=== PATIENT | male | born 1965 | race African-American/Black ===

== ENCOUNTER 2017-05-29 10:41 | Emergency (ER) | payer OTHER | END 2017-05-29 13:03 | disposition home or self-care (01) | LOC: D.ER 10:41 | DX: S66.922A Laceration of unspecified muscle, fascia and tendon at wrist and hand level, left hand, initial encounter (principal); W45.8XXA Other foreign body or object entering through skin, initial encounter; Y93.89 Activity, other specified; Y92.89 Other specified places as the place of occurrence of the external cause; F17.200 Nicotine dependence, unspecified, uncomplicated ==

== ENCOUNTER 2018-07-03 17:12 | Inpatient (IN) | payer MEDICAID ==
[~2018-07-03] VITALS: Ht 175.3 cm; Wt 74.9 kg
[2018-07-03 18:04] LABS: APPEARANCE CLEAR (CLEAR); BILIRUBIN NEGATIVE (NEGATIVE); COLOR YELLOW (YELLOW); GLUCOSE NEGATIVE (NEGATIVE); KETONE NEGATIVE (NEGATIVE); NITRITE NEGATIVE (NEGATIVE); PROTEIN NEGATIVE (NEGATIVE); SPECIFIC GRAVITY 1.005 (1.005-1.020)
[2018-07-03 18:05] LABS: BASOPHILS 0.2 % (0-2); EOSINOPHILS 0 % (0-7); HEMATOCRIT 42.5 % (42.0-54.0); HEMOGLOBIN 14.8 g/dL (13.5-17.5); LYMPHOCYTES 12.1 % (15-50); MCH 29.2 pg (26.0-34.0); MCHC 34.8 g/dL (31.0-37.0); MCV 83.8 fL (80.0-100.0); MEAN PLATELET VOLUME 10.2 fL (7.4-10.4); MONOCYTES 17.4 % (2-11); NEUTROPHILS 69.3 % (40-80); PLATELET COUNT 189 10x3/uL (130-400); RBC 5.07 10x6/uL (4.20-6.10); RDW 13.2 % (11.5-14.5); WBC 11.6 10x3/uL (4.8-10.8)
[2018-07-03 18:08] LABS: EPITHELIAL CELLS 0-5 /hpf (0-5); RED CELLS - URINE 0-5 /hpf (0-5)
[2018-07-03 18:09] LABS: BACTERIA FEW /hpf (NONE SEEN)
[2018-07-03 18:37] LABS: ALKALINE PHOSPHATASE 59 U/L (46-116); ALT (SGPT) 40 U/L (10-68); CALC OSMOLALITY 270 mosm/kg (275-300); CALCIUM 8.4 mg/dL (8.5-10.1); CARBON DIOXIDE 25.8 mmol/L (21.0-32.0); CHLORIDE - SERUM 100 mmol/L (98-107); CREATININE - SERUM 1.1 mg/dL (0.6-1.3); GLUCOSE 130 mg/dL (74-106); POTASSIUM - SERUM 3.2 mmol/L (3.5-5.1); PROTEIN - SERUM 7.4 g/dL (6.4-8.2); SODIUM 134 mmol/L (136-145); UREA NITROGEN 14 mg/dL (7-18); eGFR NON AFRICAN AMERICAN 75 mL/min (90-120)
[2018-07-03 18:43] LABS: AMYLASE - SERUM 113 U/L (25-115); C-REACTIVE PROTEIN 12.5 mg/dL (0.0-0.9); CKMB 2.3 U/L (0.0-3.6); CREATINE KINASE 688 UL (21-232); LIPASE 222 U/L (73-393); PRO BNP 378 pg/mL (0-125)
[2018-07-03 18:44] LABS: TROPONIN-I < 0.017 ng/mL (0.000-0.060)
[2018-07-03 18:56] LABS: INR 1.07 (0.85-1.17); PROTIME 13.5 SECONDS (11.6-15.0)
[2018-07-03 18:58] LABS: D-DIMER-QUANTITATIVE 0.86 ug/mLFEU (0.20-0.54)
[2018-07-03 19:41] VITALS: BP 177/102
[2018-07-03 20:32] VITALS: BP 154/94
[2018-07-04 00:49] VITALS: BP 141/99
[2018-07-04 00:58] VITALS: BP 141/99
[2018-07-04 06:51] VITALS: BP 143/99
[2018-07-04 09:20] VITALS: BP 130/79
[2018-07-04 11:19] LABS: BASOPHILS 0.2 % (0-2); EOSINOPHILS 0 % (0-7); HEMATOCRIT 39.2 % (42.0-54.0); HEMOGLOBIN 13.3 g/dL (13.5-17.5); IMMATURE GRANULOCYTES 0.5 % (0-5); LYMPHOCYTES 16.2 % (15-50); MCH 28.5 pg (26.0-34.0); MCHC 33.9 g/dL (31.0-37.0); MCV 84.1 fL (80.0-100.0); MONOCYTES 16.7 % (2-11); NEUTROPHILS 66.4 % (40-80); PLATELET COUNT 211 10x3/uL (130-400); RBC 4.66 10x6/uL (4.20-6.10); RDW 13.3 % (11.5-14.5); WBC 10.4 10x3/uL (4.8-10.8)
[2018-07-04 11:30] LABS: ALBUMIN 2.5 g/dL (3.4-5.0); ALKALINE PHOSPHATASE 50 U/L (46-116); ALT (SGPT) 31 U/L (10-68); CALC OSMOLALITY 267 mosm/kg (275-300); CALCIUM 7.5 mg/dL (8.5-10.1); CARBON DIOXIDE 24.1 mmol/L (21.0-32.0); CHLORIDE - SERUM 103 mmol/L (98-107); CREATININE - SERUM 0.9 mg/dL (0.6-1.3); GLUCOSE 133 mg/dL (74-106); POTASSIUM - SERUM 3.5 mmol/L (3.5-5.1); PROTEIN - SERUM 6.3 g/dL (6.4-8.2); SODIUM 134 mmol/L (136-145); UREA NITROGEN 7 mg/dL (7-18); eGFR NON AFRICAN AMERICAN > 90 mL/min (90-120)
[2018-07-04 12:33] VITALS: BP 148/91
[2018-07-04 21:59] VITALS: BP 137/79
[2018-07-05 05:51] LABS: BASOPHILS 0.2 % (0-2); EOSINOPHILS 0.3 % (0-7); HEMATOCRIT 38.4 % (42.0-54.0); HEMOGLOBIN 12.9 g/dL (13.5-17.5); IMMATURE GRANULOCYTES 0.9 % (0-5); LYMPHOCYTES 17.7 % (15-50); MCH 28.4 pg (26.0-34.0); MCHC 33.6 g/dL (31.0-37.0); MCV 84.4 fL (80.0-100.0); MEAN PLATELET VOLUME 11.4 fL (7.4-10.4); MONOCYTES 18.2 % (2-11); NEUTROPHILS 62.7 % (40-80); PLATELET COUNT 216 10x3/uL (130-400); RBC 4.55 10x6/uL (4.20-6.10); RDW 13.5 % (11.5-14.5)
[2018-07-05 05:56] LABS: WBC 14.3 10x3/uL (4.8-10.8)
[2018-07-05 06:38] LABS: ALBUMIN 2.3 g/dL (3.4-5.0); ALKALINE PHOSPHATASE 49 U/L (46-116); ALT (SGPT) 32 U/L (10-68); BILIRUBIN - TOTAL 1.03 mg/dL (0.2-1.3); CALCIUM 7.6 mg/dL (8.5-10.1); CARBON DIOXIDE 24.1 mmol/L (21.0-32.0); CHLORIDE - SERUM 105 mmol/L (98-107); GLUCOSE 138 mg/dL (74-106); PROTEIN - SERUM 6.2 g/dL (6.4-8.2); SODIUM 140 mmol/L (136-145); eGFR NON AFRICAN AMERICAN 83 mL/min (90-120)
[2018-07-05 06:50] LABS: CALC OSMOLALITY 277 mosm/kg (275-300); UREA NITROGEN 5 mg/dL (7-18)
[2018-07-05 06:52] LABS: POTASSIUM - SERUM 2.9 mmol/L (3.5-5.1)
[2018-07-05 07:16] VITALS: BP 164/100
[2018-07-05 08:31] VITALS: BP 136/80
[2018-07-05 11:13] VITALS: BP 166/111
[2018-07-05 13:52] VITALS: Ht 175.3 cm; Wt 74.9 kg
[2018-07-05 14:53] VITALS: BP 154/90
[2018-07-05 22:07] VITALS: BP 173/106
[2018-07-06] VITALS (7 sets, daily range): BP systolic 157–181; BP diastolic 63–120
[2018-07-06 06:21] LABS: BASOPHILS 0.3 % (0-2); EOSINOPHILS 0.7 % (0-7); HEMATOCRIT 37.2 % (42.0-54.0); HEMOGLOBIN 12.4 g/dL (13.5-17.5); IMMATURE GRANULOCYTES 2.3 % (0-5); LYMPHOCYTES 13.4 % (15-50); MCH 27.9 pg (26.0-34.0); MCHC 33.3 g/dL (31.0-37.0); MCV 83.8 fL (80.0-100.0); MEAN PLATELET VOLUME 11.4 fL (7.4-10.4); MONOCYTES 15.1 % (2-11); NEUTROPHILS 68.2 % (40-80); PLATELET COUNT 236 10x3/uL (130-400); RBC 4.44 10x6/uL (4.20-6.10); RDW 13.5 % (11.5-14.5); WBC 16.9 10x3/uL (4.8-10.8)
[2018-07-06 07:30] LABS: ALBUMIN 2.2 g/dL (3.4-5.0); ALKALINE PHOSPHATASE 61 U/L (46-116); ALT (SGPT) 48 U/L (10-68); BILIRUBIN - TOTAL 1.24 mg/dL (0.2-1.3); CALC OSMOLALITY 273 mosm/kg (275-300); CALCIUM 8.1 mg/dL (8.5-10.1); CARBON DIOXIDE 22.8 mmol/L (21.0-32.0); CHLORIDE - SERUM 105 mmol/L (98-107); CREATININE - SERUM 0.9 mg/dL (0.6-1.3); GLUCOSE 115 mg/dL (74-106); POTASSIUM - SERUM 3.4 mmol/L (3.5-5.1); PROTEIN - SERUM 6.4 g/dL (6.4-8.2); SODIUM 138 mmol/L (136-145); UREA NITROGEN 3 mg/dL (7-18); eGFR NON AFRICAN AMERICAN > 90 mL/min (90-120)
[2018-07-07 00:56] VITALS: BP 159/103
[2018-07-07 05:53] VITALS: BP 165/107
[2018-07-07 06:47] LABS: HEMATOCRIT 36.4 % (42.0-54.0); HEMOGLOBIN 12.3 g/dL (13.5-17.5); MCH 28.3 pg (26.0-34.0); MCHC 33.8 g/dL (31.0-37.0); MCV 83.9 fL (80.0-100.0); MEAN PLATELET VOLUME 11.4 fL (7.4-10.4); PLATELET COUNT 294 10x3/uL (130-400); RBC 4.34 10x6/uL (4.20-6.10); RDW 13.6 % (11.5-14.5); WBC 20.5 10x3/uL (4.8-10.8)
[2018-07-07 06:49] LABS: ALBUMIN 2.2 g/dL (3.4-5.0); ALKALINE PHOSPHATASE 60 U/L (46-116); ALT (SGPT) 45 U/L (10-68); CALC OSMOLALITY 274 mosm/kg (275-300); CALCIUM 7.9 mg/dL (8.5-10.1); CHLORIDE - SERUM 106 mmol/L (98-107); GLUCOSE 107 mg/dL (74-106); POTASSIUM - SERUM 3.2 mmol/L (3.5-5.1); PROTEIN - SERUM 6.4 g/dL (6.4-8.2); SODIUM 139 mmol/L (136-145); eGFR NON AFRICAN AMERICAN 83 mL/min (90-120)
[2018-07-07 07:01] LABS: UREA NITROGEN 5 mg/dL (7-18)
[2018-07-07 08:01] LABS: ANISOCYTOSIS OCC; EOSINOPHILS 2 % (0-7); LYMPHOCYTES 11 % (15-50); MONOCYTES 19 % (2-11); NEUTROPHILS 52 % (40-80); PLATELET ESTIMATE NORMAL
[2018-07-07 12:27] VITALS: BP 184/116
[2018-07-07 16:09] VITALS: BP 180/118
[2018-07-07 21:11] VITALS: BP 187/118
[2018-07-08] VITALS: BP 189/115
[2018-07-08 04:00] VITALS: BP 201/115
[2018-07-08 05:09] LABS: HEMATOCRIT 35.1 % (42.0-54.0); HEMOGLOBIN 11.9 g/dL (13.5-17.5); IMMATURE GRANULOCYTES 10.1 % (0-5); LYMPHOCYTES 14.6 % (15-50); MCH 28.2 pg (26.0-34.0); MCHC 33.9 g/dL (31.0-37.0); MCV 83.2 fL (80.0-100.0); MEAN PLATELET VOLUME 10.9 fL (7.4-10.4); MONOCYTES 15.9 % (2-11); NEUTROPHILS 57.4 % (40-80); RBC 4.22 10x6/uL (4.20-6.10); RDW 13.8 % (11.5-14.5); WBC 18.9 10x3/uL (4.8-10.8)
[2018-07-08 05:22] LABS: PLATELET COUNT 367 10x3/uL (130-400)
[2018-07-08 05:37] LABS: % SATURATION 17 % (15-55); IRON 24 ug/dl (35-150); TOTAL IRON BIND CAPACITY 140 ug/dl (260-445); UNSAT IRON BIND CAPACITY 116 ug/dl (150-375)
[2018-07-08 06:08] LABS: ALBUMIN 2.4 g/dL (3.4-5.0); ALKALINE PHOSPHATASE 64 U/L (46-116); BILIRUBIN - TOTAL 1.08 mg/dL (0.2-1.3); CALC OSMOLALITY 273 mosm/kg (275-300); CALCIUM 8.3 mg/dL (8.5-10.1); CARBON DIOXIDE 23.2 mmol/L (21.0-32.0); CHLORIDE - SERUM 104 mmol/L (98-107); CREATININE - SERUM 0.9 mg/dL (0.6-1.3); GLUCOSE 115 mg/dL (74-106); POTASSIUM - SERUM 3.1 mmol/L (3.5-5.1); PROTEIN - SERUM 6.9 g/dL (6.4-8.2); SODIUM 138 mmol/L (136-145); UREA NITROGEN 5 mg/dL (7-18); eGFR NON AFRICAN AMERICAN > 90 mL/min (90-120)
[2018-07-08 06:15] LABS: ALT (SGPT) 68 U/L (10-68)
[2018-07-08 06:16] LABS: FERRITIN 1659 ng/mL (3-244)
[2018-07-08 08:31] VITALS: BP 169/108
[2018-07-08 12:49] VITALS: BP 180/117
[2018-07-08 16:50] VITALS: BP 106/66
[2018-07-08 20:00] VITALS: BP 142/103
[2018-07-09] VITALS (9 sets, daily range): BP systolic 84–197; BP diastolic 40–116
[2018-07-09 04:04] LABS: BASOPHILS 1.3 % (0-2); EOSINOPHILS 1.7 % (0-7); HEMATOCRIT 32.5 % (42.0-54.0); HEMOGLOBIN 10.9 g/dL (13.5-17.5); IMMATURE GRANULOCYTES 11.6 % (0-5); LYMPHOCYTES 21.6 % (15-50); MCH 28.1 pg (26.0-34.0); MCHC 33.5 g/dL (31.0-37.0); MCV 83.8 fL (80.0-100.0); MONOCYTES 12.3 % (2-11); NEUTROPHILS 51.5 % (40-80); PLATELET COUNT 401 10x3/uL (130-400); RBC 3.88 10x6/uL (4.20-6.10); RDW 13.8 % (11.5-14.5); WBC 18.7 10x3/uL (4.8-10.8)
[2018-07-09 04:21] LABS: APTT 34.1 SECONDS (22.8-39.4); INR 0.99 (0.85-1.17); PROTIME 12.7 SECONDS (11.6-15.0)
[2018-07-09 04:34] LABS: ALBUMIN 2.1 g/dL (3.4-5.0); ALKALINE PHOSPHATASE 49 U/L (46-116); ALT (SGPT) 70 U/L (10-68); BILIRUBIN - TOTAL 0.84 mg/dL (0.2-1.3); CALC OSMOLALITY 278 mosm/kg (275-300); CARBON DIOXIDE 26.1 mmol/L (21.0-32.0); CHLORIDE - SERUM 106 mmol/L (98-107); CREATININE - SERUM 0.9 mg/dL (0.6-1.3); GLUCOSE 116 mg/dL (74-106); POTASSIUM - SERUM 3.2 mmol/L (3.5-5.1); PROTEIN - SERUM 6.4 g/dL (6.4-8.2); SODIUM 141 mmol/L (136-145); UREA NITROGEN 4 mg/dL (7-18); eGFR NON AFRICAN AMERICAN > 90 mL/min (90-120)
[2018-07-09 07:29] LABS: IMMUNOGLOBULIN A 149 mg/dL (90-386); IMMUNOGLOBULIN G 1266 mg/dL (700-1600)
[2018-07-09 11:21] LABS: ANA REFLEX - DIRECT Negative (Negative)
[2018-07-10] VITALS (7 sets, daily range): BP systolic 153–194; BP diastolic 106–112
[2018-07-10 05:11] LABS: EOSINOPHILS 2.6 % (0-7); HEMATOCRIT 31.7 % (42.0-54.0); HEMOGLOBIN 10.4 g/dL (13.5-17.5); IMMATURE GRANULOCYTES 12.9 % (0-5); LYMPHOCYTES 24.8 % (15-50); MCH 27.7 pg (26.0-34.0); MCHC 32.8 g/dL (31.0-37.0); MCV 84.5 fL (80.0-100.0); MEAN PLATELET VOLUME 10.3 fL (7.4-10.4); MONOCYTES 13.2 % (2-11); NEUTROPHILS 45.5 % (40-80); RBC 3.75 10x6/uL (4.20-6.10); RDW 14.1 % (11.5-14.5); WBC 16.5 10x3/uL (4.8-10.8)
[2018-07-10 05:24] LABS: PLATELET COUNT 484 10x3/uL (130-400)
[2018-07-10 05:29] LABS: CALC OSMOLALITY 278 mosm/kg (275-300); CALCIUM 7.8 mg/dL (8.5-10.1); CARBON DIOXIDE 26.4 mmol/L (21.0-32.0); CHLORIDE - SERUM 106 mmol/L (98-107); GLUCOSE 100 mg/dL (74-106); POTASSIUM - SERUM 3.2 mmol/L (3.5-5.1); SODIUM 141 mmol/L (136-145); eGFR NON AFRICAN AMERICAN 83 mL/min (90-120)
[2018-07-10 05:33] LABS: UREA NITROGEN 6 mg/dL (7-18)
[2018-07-10 12:15] LABS: SPECIMEN SOURCE Urine (())
[2018-07-10 20:07] LABS: ACID FAST SMEAR Negative (()); AFB SPECIMEN PROCESSING Concentration (())
[2018-07-11 06:40] LABS: HEMATOCRIT 32.6 % (42.0-54.0); HEMOGLOBIN 10.5 g/dL (13.5-17.5); MCH 27.7 pg (26.0-34.0); MCHC 32.2 g/dL (31.0-37.0); MEAN PLATELET VOLUME 10.1 fL (7.4-10.4); PLATELET COUNT 563 10x3/uL (130-400); RBC 3.79 10x6/uL (4.20-6.10); RDW 14.2 % (11.5-14.5); WBC 17.4 10x3/uL (4.8-10.8)
[2018-07-11 06:54] LABS: CALC OSMOLALITY 283 mosm/kg (275-300); CALCIUM 7.7 mg/dL (8.5-10.1); CARBON DIOXIDE 26.3 mmol/L (21.0-32.0); CHLORIDE - SERUM 106 mmol/L (98-107); GLUCOSE 118 mg/dL (74-106); SODIUM 143 mmol/L (136-145); UREA NITROGEN 6 mg/dL (7-18); eGFR NON AFRICAN AMERICAN 83 mL/min (90-120)
[2018-07-11 07:11] LABS: POTASSIUM - SERUM 2.8 mmol/L (3.5-5.1)
[2018-07-11 07:29] LABS: EOSINOPHILS 3 % (0-7); LYMPHOCYTES 28 % (15-50); MONOCYTES 11 % (2-11); NEUTROPHILS 53 % (40-80); PLATELET ESTIMATE INCREASED
[2018-07-11 08:58] VITALS: BP 158/108
[2018-07-11 11:37] VITALS: BP 186/109; BP 186/95
[2018-07-11 16:43] VITALS: BP 160/100
[2018-07-11 17:23] LABS: VANCOMYCIN - TROUGH 12.1 ug/mL (10.0-20.0)
[2018-07-11 17:29] LABS: POTASSIUM - SERUM 3.9 mmol/L (3.5-5.1)
[2018-07-11 23:17] VITALS: BP 180/84
[2018-07-12 05:58] LABS: BASOPHILS 0.6 % (0-2); EOSINOPHILS 2.9 % (0-7); HEMATOCRIT 34.4 % (42.0-54.0); HEMOGLOBIN 11.1 g/dL (13.5-17.5); IMMATURE GRANULOCYTES 10.4 % (0-5); LYMPHOCYTES 22.6 % (15-50); MCH 27.8 pg (26.0-34.0); MCHC 32.3 g/dL (31.0-37.0); MCV 86.2 fL (80.0-100.0); MEAN PLATELET VOLUME 9.7 fL (7.4-10.4); MONOCYTES 10.5 % (2-11); PLATELET COUNT 615 10x3/uL (130-400); RBC 3.99 10x6/uL (4.20-6.10); RDW 14.6 % (11.5-14.5); WBC 17.6 10x3/uL (4.8-10.8)
[2018-07-12 06:17] LABS: CALC OSMOLALITY 280 mosm/kg (275-300); CARBON DIOXIDE 28.2 mmol/L (21.0-32.0); CHLORIDE - SERUM 104 mmol/L (98-107); GLUCOSE 89 mg/dL (74-106); POTASSIUM - SERUM 4.2 mmol/L (3.5-5.1); SODIUM 142 mmol/L (136-145); eGFR NON AFRICAN AMERICAN 83 mL/min (90-120)
[2018-07-12 06:18] LABS: UREA NITROGEN 9 mg/dL (7-18)
[2018-07-12 06:25] VITALS: BP 161/101
[2018-07-12 08:55] VITALS: BP 186/118
[2018-07-12 10:14] LABS: IMMUNOGLOBULIN E 627 IU/mL (0-100)
[2018-07-12 11:14] LABS: FUNGUS STAIN Final report (())
[2018-07-12 12:48] VITALS: BP 166/106
[2018-07-12] MEDS ORDERED: CHLORTHALIDONE25 MG PO (15:49)
[2018-07-12] MEDS ORDERED: LISINOPRIL10 MG PO (15:49)
[2018-07-12] MEDS ORDERED: NORVASC10 MG PO (15:49)
[2018-07-12] MEDS ORDERED: METOPROLOL TART50 MG PO (15:49)
[2018-07-12] MEDS ORDERED: BENZONATATE200 MG PO (15:50)
[2018-07-12] MEDS ORDERED: FLORAJEN3 CAPS460 MG PO (15:50)
[2018-07-12] MEDS ORDERED: MUCINEX DM ER1 EAC1 PO (15:50)
[2018-07-12] MEDS ORDERED: LEVAQUIN750 MG PO (15:51)
[2018-07-13 16:19] LABS: FUNGAL - ASP FLAVUS Negative (Neg:<1:1); FUNGAL - ASP NIGER Negative (Neg:<1:1); FUNGAL - ASPER FUMIGATUS Negative (Neg:<1:1)
[2018-07-14 11:23] LABS: FUNGUS CULTURE RESULT 1 Candida dubliniensis (()); FUNGUS MYCOLOGY CULTURE Preliminary report (())
[2018-07-19 07:09] LABS: VIRAL - RESULT No virus isolated. (())
== END 2018-07-12 17:41 | disposition home or self-care (01) | DRG 167 ==
LOC: D.ER 17:12 → D.EDHOLD 20:52 → D.M2 20:52
PROVIDERS: Family Medicine; Internal Medicine Nephrology; Internal Medicine Pulmonary Disease
PROC: 0B9D8ZX Drainage of Right Middle Lung Lobe, Via Natural or Artificial Opening Endoscopic, Diagnostic (ICD-10-PCS; principal; 2018-07-09 11:30)
DX: J18.9 Pneumonia, unspecified organism (principal); E44.0 Moderate protein-calorie malnutrition; F17.213 Nicotine dependence, cigarettes, with withdrawal; I10 Essential (primary) hypertension; E87.6 Hypokalemia; E86.0 Dehydration; A48.1 Legionnaires' disease; D50.9 Iron deficiency anemia, unspecified; Z68.25 Body mass index [BMI] 25.0-25.9, adult

== ENCOUNTER 2020-08-07 17:43 | Emergency (ER) | payer MEDICAID ==
[~2020-08-07] VITALS: Ht 175.3 cm; Wt 90.9 kg
[~2020-08-07 17:43] MED LIST: BENZONATATE200 MG PO; CHLORTHALIDONE25 MG PO; FLORAJEN3 CAPS460 MG PO; LEVAQUIN750 MG PO; LISINOPRIL10 MG PO; METOPROLOL TART50 MG PO; MUCINEX DM ER1 EAC1 PO; NORVASC10 MG PO
[2020-08-07 17:55] VITALS: BP 207/137; Ht 175.3 cm; Wt 90.9 kg
[2020-08-07] MEDS ORDERED: VOLTAREN75 MG PO (18:21)
[2020-08-07] MEDS ORDERED: BACLOFEN20 M1 PO (18:21)
== END 2020-08-07 20:49 | disposition home or self-care (01) ==
LOC: D.ER 17:43
DX: M25.512 Pain in left shoulder (principal); S43.402A Unspecified sprain of left shoulder joint, initial encounter; X58.XXXA Exposure to other specified factors, initial encounter; I10 Essential (primary) hypertension